=== PATIENT | female | born 2000 | race Hispanic/Latino ===

== ENCOUNTER 2025-02-21 13:16 | Emergency (ER) | payer OTHER, SELFPAY ==
[2025-02-21 13:26] VITALS: BP 112/76; PULSE 90; RESP 20; TEMP 37.1; O2SAT 99
--- NOTE | 2025-02-21 13:28 | ED_ITS ---
HPI - Nausea/Vomiting/Diarrhea General Chief complaint: Nausea/Vomiting/Diarrhea Stated complaint: Vomiting Time Seen by Provider: 02/21/25 13:38 Source: patient and RN notes reviewed Mode of arrival: ambulatory Limitations: no limitations History of Present Illness HPI Narrative: 24 y/o female presented for c/o n/v/d. Onset 2 weeks. Endorses nausea today without vomiting. Last time she ate was last night, then had emesis. Describes the emesis as mostly water, and usually right after eating. Endorses associated epigastric pain. Also has had some loose stools. Denies hematochezia, melena, hematemesis, Denies hematuria, flank pain, constipation, fevers or chills. Took Pepto. Says she was seen in the ER at onset, tested neg for strep, flu and covid. Related Data Allergies Allergy/AdvReac Type Severity Reaction Status Date / Time No Known Allergies Allergy Verified 02/21/25 13:34 Review of Systems Review of Systems: CONSTITUTIONAL: Denies body aches, fever, chills ENT: Denies rhinorrhea, congestion CARDIOVASCULAR: Denies chest pain, palpitations, or edema. RESPIRATORY: Denies cough or dyspnea. GASTROINTESTINAL: Endorses epigastric abdominal pain, nausea, vomiting, diarrhea. Denies hematochezia, melena, hematemesis GENITOURINARY: Denies dysuria, hematuria, or CVA tenderness. SKIN: Denies rash MUSCULOSKELETAL: Denies back pain, joint pain, or myalgia. NEUROLOGIC: Denies headache, numbness, tingling, or weakness. All systems reviewed & are unremarkable except as noted in HPI and below [facility] Surgical History Surgical History (Updated 02/21/25 @ 13:44 by Phylicia Brown, NELLY) History of appendectomy Comments At time of signature, I have reviewed and agree with nursing past medical, fernandes rgical, social and family history unless otherwise noted. Please see nursing chart for further information. There is no relevant family history pertinent to the presenting complaint Exam Narrative: GENERAL: Well-appearing, and in no acute distress. EYES: EOMI. Conjunctivae normal. ENT: Mucous membranes pink and moist. CHEST: No respiratory distress. Clear to auscultation. HEART: Regular rate and rhythm. No murmur appreciated. Normal peripheral pulses. ABDOMEN: abd soft, nondistended, normal active bowel sounds. Tender abdomen to epigsatric; No guarding, rebound tenderness, asymmetry EXTREMITIES: Normal range of motion. No edema. SKIN: Warm, dry, no rash. Capillary refill normal. Normal skin turgor. NEURO: No focal deficits. Alert and oriented x3. PSYCH: Normal affect. Course Course Emergency Course: Patient is aware of diagnosis, understands and agrees to treatment plan. Anticipatory guidance given. Patient agrees to follow-up as directed and is aware of reasons to seek care at the emergency department. Portions of this record may have been created with voice recognition software Level of Care: Express Care Visit Vital Signs Vital signs: Vital Signs Temperature 98.8 F 02/21/25 13:26 Pulse Rate 90 02/21/25 13:26 Respiratory Rate 20 02/21/25 13:26 Blood Pressure 112/76 02/21/25 13:26 Pulse Oximetry 99 02/21/25 13:26 Oxygen Delivery Room Air 02/21/25 13:26 Temperature 98.8 F 02/21/25 13:26 Pulse Rate 90 02/21/25 13:26 Respiratory Rate 20 02/21/25 13:26 Blood Pressure 112/76 02/21/25 13:26 Pulse Oximetry 99 02/21/25 13:26 Oxygen Delivery Room Air 02/21/25 13:26 MDM - Nausea/Vomiting/Diarrhea MDM Narrative Medical decision making narrative: Discussed physical exam findings, neg urine preg. Will culture urine. Advised supportive measures, RX ppi, and signs/symptoms to go to the ER. Pt is appropriate for outpt treatment and f/u. Differential Diagnosis Differential diagnosis: Likely traveler's diarrhea, food poisoning, gastroenteritis, drug-induced nausea and vomiting, dehydration and other Lab Data Labs: Lab Results 02/21/25 Range/Units 13:43 POC Urine Color Yellow POC Urine Clarity Clear POC Urine pH 7.5 POC Ur Specif [place] 1.015 POC Urine Protein Negative (Negative) POC Ur Glucose (UA) Negative (Negative) POC Urine Ketones Negative (Negative) POC Urine Blood Trace (Negative) POC Urine Nitrite Negative (Negative) POC Urine Bilirubin Negative (Negative) POC Urine Urobilinogen 0.2 POC U Leukocyte Esteras 1+ (Negative) POC Urine HCG, Qual Negative (Negative) Discharge Plan Discharge Clinical Impression: Nausea vomiting and diarrhea Patient Disposition: Home Condition: Stable Instructions: Antibiotic Form, GERD (Gastroesophageal Reflux Disease) (ED) Additional Instructions: Stay hydrated. Take small sips of fluid containing electrolytes frequently. Clear liquids (broth, jello, tea, sprite, pedialyte) and Maurice foods (bananas, rice, applesauce, toast, crackers) Avoid fatty, greasy, fried or spicy foods. Limit dairy until symptoms are improved. Recommend probiotic such as align or lactobacillus to help with symptoms. You should go to the hospital if you experience persistent nausea and vomiting that does not resolve and does not allow you to tolerate any food or fluids, fevers, increasing abdominal pain, persistent diarrhea, dizziness, fainting, or for any other concerns. Follow up with primary care provider in 3 days. Patient Language: Telugu Prescriptions: New pantoprazole [Protonix] 40 mg tablet,delayed release (DR/EC) 40 mg PO QAM 28 Days Qty: 28 0RF ondansetron 4 mg tablet,disintegrating 4 mg PO Q8H PRN (Reason: nausea and vomiting) Qty: 6 0RF Follow-up/Referrals: PHYSICIAN,BAND HEAD SAW OPERATOR [Primary Care Provider, Internal Medicine] Haris Andrews MD [Physician, Gastroenterology] Time of Disposition: 14:06
[2025-02-21 13:55] LABS: BEDSIDEPREGUCG Negative (Negative)
[2025-02-21 14:24] LABS: EDUAAPPEAR Clear; EDUABILI Negative (Negative); EDUABLOOD Trace (Negative); EDUACOLOR1 Yellow; EDUAGLUCOSE Negative (Negative); EDUAKETONE Negative (Negative); EDUALEUKO 1+ (Negative); EDUANITRATE Negative (Negative); EDUAPH 7.5; EDUAPROTEIN Negative (Negative); EDUASPGRAVITY 1.015; EDUAUROBILI 0.2
== END 2025-02-21 14:10 | disposition home or self-care (01) ==
PROVIDERS: Emergency Provider Nurse Practitioner Family
DX: R11.2 Nausea with vomiting, unspecified (principal); R19.7 Diarrhea, unspecified
CPT/HCPCS: 81003; 81025; 87086; 99203; G0463

== ENCOUNTER 2025-05-10 15:13 | Outpatient (CLI) | payer OTHER, SELFPAY ==
--- OUTSIDE RECORDS SUMMARY | 2025-05-10 15:18 | XMS_ITS | Clinical Summary ---
Author Organization [facility] Address [address] [place] [address] Care Team Providers Care Beaming Inspector Name Role Phone None, Provider Primary Care Provider Unavaila ble Allergies No known active allergies Medications chanda orellana (CARLOSCKS) 50 % pads Apply topically as needed for Irritation or Itching. 48 each Active Encounters Date Type Department Care Team Description 02/08/2025 6:54 PM CDT - 02/08/2025 8:09 PM CDT Emergency [facility] [place] [address] Cleveland Vuong, ANGELICA Sore Throat Discharge Disposition: Home or Self Care (Routine Discharge) 02/08/2025 Travel from Last 3 Months Social History Tobacco Use Types Packs/Day Years Used Date Smoking Tobacco: Never Smokeless Tobacco: Never Alcohol Use Standard Drinks/Week Comments Not Currently 0 (1 standard drink = 0.6 oz pur e alcohol) Comments Unknown Sex and Gender Information Value Date Recorded Sex Assigned at Female 02/08/2025 7:45 PM CDT Legal Sex Female 7:53 PM CDT Gender Identity Not on file Sexual Orientation Not on file Last Filed Vital Signs Vital Sign Reading Time Taken Comments Blood Pressure 126/86 02/08/2025 6:28 PM CDT Pulse 109 02/08/2025 6:28 PM CDT Temperature 37.2 C (99 F) 02/08/2025 6:28 PM CDT Respiratory Rate 16 02/08/2025 6:28 PM CDT Oxygen Saturation 96% 02/08/2025 6:28 PM CDT Inhaled Oxygen Concentration - - Weight 79.3 kg (174 lb 13.2 oz) 02/08/2025 6:28 PM CDT Height 149.9 cm (4' 11) 02/08/2025 6:28 PM CDT Body Mass Index 35.31 02/08/2025 6:28 PM CDT Plan of Treatment Health Maintenance Due Date Last Done Comments Cervical Cancer Screening Pa p Smear (Age 21 to 29) Every 3 Years 1998 Cervical Cancer Screening 1998 Annual Physical 2001 HPV Vaccines (1 - 3-dose series) 2013 Hepatitis C 2016 DTaP, Tdap and Td Vaccines ( 1 - Tdap) 2017 Hepatitis B Vaccines (1 of 3 - 19+ 3-dose series) 2017 PHQ-2 (Physician Sanborn) 06/20/2024 COVID-19 Vaccine (1 - 2024-2 6 season) 2025 Influenza Adult (#1) 2025 Hepatitis A Vaccines Aged Out No long er eligible based on patient's age to complete this topic Meningococcal B Vaccine Aged Out No l onger eligible based on patient's age to complete this topic Meningococcal Vaccine Aged Out No arthur satish eligible based on patient's age to complete this topic Pneumococcal Vaccine: Pediat rics (0 to 5 Years) and At-Risk Patients (6 to 49 Years) Aged Out No longer eligible b ased on patient's age to complete this topic RSV Immunizations Under 20 Months Aged Out No longer eligible based on patient's age to complete this topic Procedures Procedure Name Priority Date/Time Associated Diagnosis Comments HC OPTICAL STREP STAT 02/08/2025 6:58 PM CDT CORONAVIRUS (COVID 19) STAT 02/08/2025 6:58 PM CDT from Last 3 Months Results * CORONAVIRUS (COVID 19) (02/08/2025 6:58 PM CDT) CORONAVIRUS SARS COV 2 RNA NEGATIVE NEGATIVE 02/08/2025 7:46 PM CDT [facility] Comment: NEGATIVE RESULTS DO NOT RULE OUT COVID 19 AND SHOULD NOT BE USED THE SOLE BASIS FOR TREATMENT OR PATIENT MANAGEMENT DECISIONS, INCLUDING INFECTION CONTROL DECISIONS. NEGATIVE RESULTS SHOULD BE CONSIDERED IN THE CONTEXT OF A PATIENT'S RECENT EXPOSURES, HISTORY AND THE PRESENCE OF CLINICAL SIGNS AND SYMPTOMS CONSISTENT WITH COVID 19. THE ID NOW COVID-19 2.0 TEST HAS BEEN AUTHORIZED BY THE FDA UNDER EAU FOR USE BY AUTHORIZED LABORATORIES. PERFORMED BY NUCLEIC ACID AMPLIFICATION FOR MOLECULAR QUALITATIVE DETECTION OF SARS-COV-2. SPECIMEN TYPE NASAL 02/08/2025 6:57 PM CDT [facility] NASAL STRUCTURE / Unknown 02/08/2025 6:58 PM CDT Cleveland Vuong NP MICROBIOLOGY - GENERAL ORDERAB LES Final Result [facility] [address] [place] [address], [place] [phone] * STREP A RAPID (02/08/2025 6:58 PM CDT) SPECIMEN TYPE THROAT 02/08/2025 6:57 PM CDT [facility] RAPID STREP TEST NEGATIVE NEGATIVE 02/08/2025 7:59 PM CDT [facility] STRUCTURE OF ANTERIOR REGION OF NECK / Unknown 02/08/2025 6:58 PM CDT Cleveland Vuong PICKER MACHINE OPERATOR MICROBIOLOGY - GENERAL ORDERAB LES Final Result [facility] [address] [place] [address], [place] [phone] from Last 3 Months Care Teams Beaming Inspector Relationship Specialty Start Date End Date None, Provider, PCP - General UNKNOWN PHYSICIAN SPECIALTY 04/08/22
--- OUTSIDE RECORDS SUMMARY | 2025-05-10 15:18 | XMS_ITS | Data Portability ---
Author Organization [place] [facility] , [facility] Address [address] [place] [address] Assessment Encounter Date Assessment Date Assessment LastModified by Organization Details LastModified Time 02/25/2025 02/25/2025 24-year-old female presenting with vaginal discharge. A swab was taken to determine the cause of the discharge, with results pending to guide further treatment. [email or web address] Not available 02/25/2025 11:13:41 Plan of Treatment Reminders Order Date Submit Date Provider Last Modified By Organization Details Last Modified Time Details Appointments None recorded. Lab bacterial vaginosis + vaginitis panel, vaginal 2024 025 [address] [email or web address], [address] [place], [address], 09:23:03 Referral None recorded. Procedures None recorded. Surgeries None recorded. Imaging None recorded. Medication Orders None recorded. Patient TargetsNo targets recorded. Patient Instructions Encounter Date Encounter Id Patient Instructions Last Modified By Organization Details Last Modified Time 02/25/2025 [id number] vaginitis: care instructions [email or web address] Not available 02/25/2025 12:08:10 - Await swab results for further instructions - Follow up as needed based on results [email or web address] Not available 02/25/2025 11:13:43 Reason for Referral None Reported. Results Created Date Observation Date Name Description Value Unit Range Abnormal Flag Note LastModifiedBy Organization Detail LastModifiedTime 02/26/20 25 02/26/2025 VAGIN ITIS PLUS STD PANEL bacterial vaginosis BV POS negati ve abnormal Not Available [email or web address] [address] [place], [address], 02/27/2025 09:23:03 02/26/20 25 02/26/2025 VAGIN ITIS PLUS STD PANEL magda species C. spp POS negati ve abnormal Not Available [address], [address], 02/27/2025 09:23:03 02/26/20 25 02/26/2025 VAGIN ITIS PLUS STD PANEL magda glabrata C. gla neg negati ve normal Not Available [address], [address], 02/27/2025 09:23:03 02/26/20 25 02/26/2025 VAGIN ITIS PLUS STD PANEL trichomonas vaginalis CV/TV TRICH neg negati ve normal Not Available [address], [address], 02/27/2025 09:23:03 02/26/20 25 02/26/2025 VAGIN ITIS PLUS STD PANEL chlamydia trachomatis CT neg negati ve normal This repor t is inten ded for us in clini sincere monit oring and manag ement of patie nts. It is not inten ded for use in medic al-le gal appli catio n. Not Available [address], [address], 02/27/2025 09:23:03 02/26/20 25 02/26/2025 VAGIN ITIS PLUS STD PANEL neisseria gonorrhoeae GC neg negati ve normal This repor t is inten ded for us in clini sincere monit oring and manag ement of patie nts. It is not inten ded for use in medic al-le gal appli catio n. Not Available [address], [address], 02/27/2025 09:23:03 Result Notes None recorded. Procedures Surgical History Date Name Laterality Status Provider Name and Address Organization Details Recorded Time Appendectomy completed [facility] 02/25/2025 10:56:04 Imaging Results None recorded. Procedure Notes None recorded. Medical Equipment None Reported. Allergies No known drug allergies Medications Name Sig Start Date Stop Date Status Note LastModified by Organization Details LastModified Time terconazole 0.4 % vaginal cream Insert 1 applicato rful every day by vaginal route for 7 days. 03/13 completed Not Available Not Available Not Available fluconazole 150 mg tablet Take 1 tablet by oral route. active Not Available Not Available No t Available metronidazo le 500 mg tablet TAKE 1 TABLET BY MOUTH TWICE DAILY active Not Available Not Available No t Available pantoprazol e 40 mg tablet,obdulio yed release TAKE 1 TABLET BY MOUTH EVERY MORNING FOR 4 WEEKS active Not Available Not Available No t Available ondansetron 4 mg disintegrat ing tablet DISSOLVE 1 TABLET ON THE TONGUE EVERY 8 HOURS NEEDED FOR NAUSEA OR VOMITING active Not Available Not Available No t Available Vitals Date Recorded Body height Body mass index (BMI) Body weight Systolic And Diastolic Provider Name and Address Organization Details Last Updated DateTime 02/25/2025 149.86 cm 34.3 kg/m2 47319.7 g 102/62 mm[Hg] Batsheva Love [facility] 02/25/2025 10:55:53 Social History Question Answer Notes LastModified by Organizat ion Details LastModified Time Tobacco Smoking Status Never Smoker Batsheva Love [facility] [place] [facility] 02/25/2025 10:58:10 Are You Blind Or Do You Have Difficulty Seeing? No Information not available 02/25/2025 Are You Deaf Or Do You Have Serious Difficulty Hearing? No [email or web address] Information not available 02/25/2025 What Type Of Diet Are You Following? REGULAR [email or web address] Information not available 02/25/2025 How Many Children Do You Have? 0 [email or web address] Information not available 02/25/2025 What Is Your Relationship Status? Single [email or web address] Information not available 02/25/2025 Are You Sexually Active? No Information not available 02/25/2025 Sex: Unknown Functional Status Question Answer Note LastModified by Organizat ion Details LastModified Time Do you use any illicit or recreational drugs? No [email or web address] Information not available 02/25/2025 Do you or have you ever used any other forms of tobacco or nicotine? No [email or web address] Information not available 02/25/2025 What is your level of alcohol consumption? None [email or web address] Information not available 02/25/2025 Mental Status None recorded. Family History Relationship Description Onset Age of this Age Resolved Age Notes LastModified by Organization Details LastModified Time Mother Diabetes mellitus [email or web address] Not available 2024 10:57:28 Notes:cancer runs in family Medical History Condition Response Other Cancer N High Blood Pressure N Colon Cancer N Cytomegalovirus N Hyperthyroidism N MRSA N Blood Transfusion N Herpes (HSV) N Breast Cancer N Lung Cancer N Hypothyroidism N Depression N Incontinence N Panic Attacks N Neurological Disorder N Deep Vein Thrombosis N Anxiety Disorder N Autoimmune disease N Arthritis N Shingles N Tuberculosis/Positive PPD N Infertility N Polycystic Ovarian Syndrome N Cervical Cancer N Chlamydia N Hematuria N Stroke N Varicosities N Seasonal allergies N Crohn's Disease N Alzheimer's/Dementia N COPD/Emphysema N Endometriosis N HPV/Genital Warts N IBS (Irritable Bowel Syndrome) N History of Abnormal Pap N High Cholesterol N Liver Disease N Kidney Infection N Fibromyalgia N Ulcer N Kidney Disease N HIV N Gallbladder disease N Von Willebrand disease N Sickle Cell Disease/Trait N ADD/ADHD N Eating Disorder N Diabetes Mellitus (non-insulin dependent ) N Anemia N Ovarian Problems N Multiple Sclerosis N Gonorrhea N Frequent Urinary Tract infections N Osteopenia N Headaches/migraines N GERD (reflux) N Ovarian Cancer N Diabetes (insulin dependent) N Seizures/Epilepsy N Breast Problems N Fibroids N Asthma N Heart Attack N Endometrial Cancer N Lupus N Rubella N Blood Clotting Disorder N Bipolar Disorder N Diabetes Mellitus (during ) N Ulcerative Colitis N Hepatitis N Heart Disease N Pulmonary Embolism N RPR N Chicken Pox N Osteoporosis N Gynecological History Statement/Question Response Date of Last Colonoscopy Flow Heavy Frequency of Cycle (Q days) 182 Date of LMP 05/27/2024 Most Recent Bone Density Date of Last Pap Smear Duration of Flow (days) 3 Most Recent Mammogram Current Control Method None Age at Menarche 9 Obstetrics History GPAL:G 0 P 0 0 0 0 Type Value Living 0 Total 0 Past Encounters Encounter ID Performer Location Encounter Start Date Encounter Closed Date Diagnosis/Indication Diagnosis SNOMED-CT Code Diagnosis ICD10 Code Diagnosis IMO Codes Diagnosis Note [id number] Carl Jimenez DO [facility] [address] [facility] [phone] 02/25/2025 10:50:02 02/25/2025 16:38:16 Vaginal discharge 853785575 N76.0 N89.8 - Swab taken for diagnostic evaluation , results pending - Await swab results to determine appropriat e treatment Health Concerns Section Related Observation LastModified by Organization Detai ls LastModified Time None Recorded Concern Status LastModified by Organization Details LastModified Time None Recorded Advance Directives Directive None Recorded Payers Insurance Date Sequence Insurance Name Policy Number Policy Watson Covered Member ID Watson Member ID Guarantor Name 02/25/2025 1 KeyOwnerBANNER E [employer]UDENTR[employer] ([facility]) [id number] Asiya Lantigua [id number] Asiya Lantigua Notes Date Note Type Note Provider Name and Address Organization Details Recorded Time 02/25/2025 text/html Vaginal/Vulvar ProblemReported by Patient Slivia is present for vaginal discharge. Pt. states that she has light green discharge that comes and go. Pt. states that this has been going on for the past year. Pt. denies any vaginal itching, odor or pain. Pt. states that she has irregular bleeding.The patient is a 24-year-old female presenting with vaginal discharge. A swab was taken during the pelvic examination to aid in diagnosis. - Swab results pending for diagnostic evaluation Carl Jimenez, DO [address] [facility], [place], [address], [facility] 02/25/2025 13:39:58 OBGyn Episode No OBEpisode recorded.
== END 2025-05-10 15:14 | disposition home or self-care (01) ==
LOC: ANHLAB 15:15
PROVIDERS: Visit Provider Nurse Practitioner Family
DX: R11.2 Nausea with vomiting, unspecified (principal)
CPT/HCPCS: 83013

== ENCOUNTER 2025-05-18 05:41 | Emergency (ER) | payer OTHER, SELFPAY ==
[2025-05-18] VITALS (13 sets, daily range): BP systolic 98–112; BP diastolic 58–71; PULSE 72–96; RESP 14–20; TEMP 36.9; O2SAT 97–100
--- NOTE | ~2025-05-18 | US_ITS ---
ULTRASOUND ABDOMEN LIMITED (RIGHT UPPER QUADRANT) Clinical History: postprandial vomiting, elevated LFTS Comparison: None Technique: Right upper quadrant sonography Findings: Liver: Normal size. Echogenic. No intrahepatic biliary ductal dilatation. Normal hepatopedal flow main portal vein. Common Duct: Normal caliber. 4 mm. Gallbladder: Stones. No wall thickening. No pericholecystic fluid. Negative sonographic Marshall's sign per technologist report. Pancreas: Unremarkable. Right kidney: Unremarkable. Retrohepatic IVC: Unremarkable. IMPRESSION: 1. No acute findings. 2. Gallstones. No evidence of cholecystitis. 3. Hepatic steatosis and/or hepatocellular disease. Reviewed, dictated and finalized at location [facility]
--- NOTE | 2025-05-18 05:54 | ED.ABDPAIN ---
HPI - Abdominal Pain General Chief Complaint: Abdominal Pain <Ranjan Guardado MD - Last Filed: 05/18/25 06:58> Stated Complaint: abd pain <Ranjan Guardado MD - Last Filed: 05/18/25 06:58> Time Seen by Provider: 05/18/25 05:46 <Ranjan Guardado MD - Last Filed: 05/18/25 06:58> History of Present Illness HPI narrative: 24-year-old female with history of GERD, reflux presenting to the emergency department today with epigastric pain that she describes as a burning sensation in her epigastrium sometimes going into her esophagus behind the sternum. She vomited several times today. No abdominal discomfort in the lower quadrants, has a history of appendectomy. Is currently being evaluated by her GI doctor for these symptoms. She tested negative for H pylori recently and is scheduled for an upper endoscopy in June to further evaluate her symptoms. She has been intermittently taking her medications most recently took a Protonix yesterday for the symptoms that started around midnight. Denies any fever, chills, chest pain, shortness a breath, traumatic injuries. Was otherwise in her normal state of health. <Ranjan Guardado MD - Last Filed: 05/18/25 06:58> Related Data Home Medications: Home Medications ?Medication ?Instructions ?Recorded ?Confirmed ?Last Taken ?Type famotidine 40 mg tablet 40 mg PO DAILY 03/25/25 03/25/25 Unknown History <Ranjan Guardado MD - Last Filed: 05/18/25 06:58> Allergies/Adverse Reactions: Allergies Allergy/AdvReac Type Severity Reaction Status Date / Time No Known Allergies Allergy Verified 05/18/25 05:41 <Ranjan Guardado MD - Last Filed: 05/18/25 06:58> Review of Systems Review of Systems: As reviewed above in HPI <Ranjan Guardado MD - Last Filed: 05/18/25 06:58> All systems reviewed & are unremarkable except as noted in HPI and below <Ranjan Guardado MD - Last Filed: 05/18/25 06:58> [facility] Past Medical History Medical History: Medical History Diarrhea GERD (gastroesophageal reflux disease) Epigastric pain Nausea and vomiting <Ranjan Guardado MD - Last Filed: 05/18/25 06:58> Surgical History Surgical History: Surgical History History of appendectomy <Ranjan Guardado MD - Last Filed: 05/18/25 06:58> Social History Social History: Social History Smoking status: Never smoker <Ranjan Guardado MD - Last Filed: 05/18/25 06:58> Exam Narrative: GENERAL: [Well-appearing, well-nourished, and in no acute distress.] HEAD: [Normocephalic, atraumatic.] EYES: [PERRLA and EOMI.] ENT: Nares clear, no rhinorrhea or epistaxis. Mucous membranes moist. NECK: Supple. CHEST: [Clear to auscultation. No respiratory distress.] HEART: [Regular rate and rhythm]. No murmur heard. [Normal peripheral pulses.] ABDOMEN: [Soft, nondistended], [nontender], [No rigidity or guarding] EXTREMITIES: Normal range of motion. [No edema.] SKIN: Warm, dry, no rash. NEURO: [No focal deficits]. Alert and oriented [x3.] PSYCH: [Normal mood and affect.] <Ranjan Guardado MD - Last Filed: 05/18/25 06:58> Course Course Emergency Course: Patient resting comfortably. Informed of results. She does have gallstones. Discussed with general surgery who would like to see the patient this week. Will provide pain and nausea control for home. Pain free at this time with a benign exam. <Lamont Dia MD - Last Filed: 05/18/25 09:30> Vital Signs Vital signs: Vital Signs Temperature 98.5 F 05/18/25 05:47 Pulse Rate 96 05/18/25 05:47 Respiratory Rate 20 05/18/25 05:47 Blood Pressure 112/67 05/18/25 05:47 Pulse Oximetry 98 05/18/25 05:47 Temperature 98.5 F 05/18/25 05:47 Pulse Rate 74 05/18/25 09:00 Respiratory Rate 16 05/18/25 09:00 Blood Pressure 104/69 05/18/25 09:00 Pulse Oximetry 99 05/18/25 09:00 <Ranjan Guardado MD - Last Filed: 05/18/25 06:58> Vital Signs Temperature 98.5 F 05/18/25 05:47 Pulse Rate 96 05/18/25 05:47 Respiratory Rate 20 05/18/25 05:47 Blood Pressure 112/67 05/18/25 05:47 Pulse Oximetry 98 05/18/25 05:47 Temperature 98.5 F 05/18/25 05:47 Pulse Rate 74 05/18/25 09:00 Respiratory Rate 16 05/18/25 09:00 Blood Pressure 104/69 05/18/25 09:00 Pulse Oximetry 99 05/18/25 09:00 <Lamont Dia MD - Last Filed: 05/18/25 09:30> MDM - Abdominal Pain MDM Narrative Medical decision making narrative: 24-year-old female with history of GERD, reflux presenting to the emergency department today with epigastric pain that she describes as a burning sensation in her epigastrium sometimes going into her esophagus behind the sternum. She vomited several times today. No abdominal discomfort in the lower quadrants, has a history of appendectomy. Is currently being evaluated by her GI doctor for these symptoms. She tested negative for H pylori recently and is scheduled for an upper endoscopy in June to further evaluate her symptoms. She has been intermittently taking her medications most recently took a Protonix yesterday for the symptoms that started around midnight. Denies any fever, chills, chest pain, shortness a breath, traumatic injuries. Was otherwise in her normal state of health. Patient has normal vital signs. No tachycardia, fever, hypoxemia. Normal blood pressure. Soft nontender nondistended abdomen. She describes her pain as burning epigastric pain sometimes going into her esophagus and she has vomited. Symptoms consistent with gastritis, gastroenteritis, peptic ulcer disease. Patient is already getting proper care for this and has an endoscopy upcoming for these symptoms but states that the pain worsened today. She otherwise is low risk and does not smoke or drink. No family history of any malignancies and I did review patient's GI note with previous changes to her medication regimen from histamine blockers to PPIs. Will treat her symptomatically with a GI cocktail and IV Pepcid. Given Zofran and laboratory studies were obtained. Patient felt significantly better after treatment regimen with Pepcid and GI cocktail. Her laboratory studies show elevations in her LFTs however. Her T bili is normal, glucose is normal. Lipase and test are negative. Normal electrolytes. No significant leukocytosis. I went and re-evaluated the patient at this time and she did not have any pain in her right upper quadrant and was not febrile or tachycardic. I did discuss her LFT elevations and given her symptom improvement offered her treatment plan with Pepcid Maalox and GI follow-up for this but she was hesitant and requested further evaluation about her LFTs as she is worried about postprandial vomiting that she has been dealing with for few days being potentially related to gallbladder pathology. Ordered right upper quadrant ultrasound at this time and patient care signed over to morning physician pending results and discharge home likely afterwards with GI follow-up. Prescription medications sent. <Ranjan Guardado MD - Last Filed: 05/18/25 06:58> Medical Records Attestation: I reviewed the patient's medical records. <Ranjan Guardado MD - Last Filed: 05/18/25 06:58> Lab Data Attestation: I reviewed the patient's lab results. <Ranjan Guardado MD - Last Filed: 05/18/25 06:58> Result diagrams: 05/18/25 05:55 05/18/25 05:55 <Ranjan Guardado MD - Last Filed: 05/18/25 06:58> Labs: Lab Results 05/18/25 Range/Units 05:55 WBC 10.6 H (4.5-10.0) K/mm3 RBC 4.87 (4.2-5.4) M/mm3 Hgb 13.7 (12.0-15.0) g/dL Hct 41.2 (37.0-47.0) % MCV 84.6 (80-100) fl MCH 28.1 (26-34) pg MCHC 33.3 (32-36) g/dl RDW 13.1 (11.5-14.5) % Plt Count 333 (150-375) k/mm3 MPV 9.9 (7.4-10.4) fl Immature Gran % (Auto) 0.5 (0-0.5) % Neut % (Auto) 82.0 H (45.5-73.1) % Lymph % (Auto) 12.3 L (18.3-44.2) % [place] % (Auto) 4.4 (2.6-8.5) % Eos % (Auto) 0.2 (0-4.4) % Baso % (Auto) 0.6 (0.2-1.2) % Lymph # (Auto) 1.31 (0.9-3.2) K/mm3 [place] # (Auto) 0.5 (0.1-0.6) K/mm3 Eos # (Auto) 0.0 (0-0.3) K/mm3 Baso # (Auto) 0.1 (0.0-0.1) K/mm3 Abs Immat Gran (auto) 0.05 H (0.00-0.031) K/mm3 Absolute Neuts (auto) 8.7 H (1.3-6.7) K/mm3 Absolute Nucleated RBC 0.000 (0.0-0.012) K/mm3 Nucleated RBC % 0.0 (0.0-0.2) % Sodium 137 (137-145) mmol/L Potassium 3.6 (3.4-5.0) mmol/L Chloride 104 (98-107) mmol/L Carbon Dioxide 25 (22-30) mmol/L Anion Gap 8 (4-12) mmol/L BUN 10 (7-17) mg/dL Creatinine 0.66 L (0.7-1.0) mg/dL Estim Creat Clear Calc Not Reportable Estimated GFR > 60 (59 - ) Glucose 125 H (65-110) mg/dL Calcium 9.1 (8.4-10.2) mg/dL Magnesium 1.9 (1.6-2.3) mg/dL Total Bilirubin 0.9 (0.2-1.3) mg/dL AST 401 H (14-36) U/L ALT 259 H (6-35) U/L Alkaline Phosphatase 116 (38-126) U/L Total Protein 8.5 H (6.3-8.2) g/dL Albumin 4.8 (3.5-5.1) g/dL Lipase 124 (23-300) U/L Beta HCG, Quant < 2.39 mIU/ML <Ranjan Guardado MD - Last Filed: 05/18/25 06:58> Lab Results 05/18/25 Range/Units 05:55 WBC 10.6 H (4.5-10.0) K/mm3 RBC 4.87 (4.2-5.4) M/mm3 Hgb 13.7 (12.0-15.0) g/dL Hct 41.2 (37.0-47.0) % MCV 84.6 (80-100) fl MCH 28.1 (26-34) pg MCHC 33.3 (32-36) g/dl RDW 13.1 (11.5-14.5) % Plt Count 333 (150-375) k/mm3 MPV 9.9 (7.4-10.4) fl Immature Gran % (Auto) 0.5 (0-0.5) % Neut % (Auto) 82.0 H (45.5-73.1) % Lymph % (Auto) 12.3 L (18.3-44.2) % [place] % (Auto) 4.4 (2.6-8.5) % Eos % (Auto) 0.2 (0-4.4) % Baso % (Auto) 0.6 (0.2-1.2) % Lymph # (Auto) 1.31 (0.9-3.2) K/mm3 [place] # (Auto) 0.5 (0.1-0.6) K/mm3 Eos # (Auto) 0.0 (0-0.3) K/mm3 Baso # (Auto) 0.1 (0.0-0.1) K/mm3 Abs Immat Gran (auto) 0.05 H (0.00-0.031) K/mm3 Absolute Neuts (auto) 8.7 H (1.3-6.7) K/mm3 Absolute Nucleated RBC 0.000 (0.0-0.012) K/mm3 Nucleated RBC % 0.0 (0.0-0.2) % Sodium 137 (137-145) mmol/L Potassium 3.6 (3.4-5.0) mmol/L Chloride 104 (98-107) mmol/L Carbon Dioxide 25 (22-30) mmol/L Anion Gap 8 (4-12) mmol/L BUN 10 (7-17) mg/dL Creatinine 0.66 L (0.7-1.0) mg/dL Estim Creat Clear Calc Not Reportable Estimated GFR > 60 (59 - ) Glucose 125 H (65-110) mg/dL Calcium 9.1 (8.4-10.2) mg/dL Magnesium 1.9 (1.6-2.3) mg/dL Total Bilirubin 0.9 (0.2-1.3) mg/dL AST 401 H (14-36) U/L ALT 259 H (6-35) U/L Alkaline Phosphatase 116 (38-126) U/L Total Protein 8.5 H (6.3-8.2) g/dL Albumin 4.8 (3.5-5.1) g/dL Lipase 124 (23-300) U/L Beta HCG, Quant < 2.39 mIU/ML <Lamont Dia MD - Last Filed: 05/18/25 09:30> Imaging Data Radiologist's impression: ITS Impressions Abdomen Ultrasound 05/18/25 08:20 IMPRESSION: 1. No acute findings. 2. Gallstones. No evidence of cholecystitis. 3. Hepatic steatosis and/or hepatocellular disease. <Ranjan Guardado MD - Last Filed: 05/18/25 06:58> ITS Impressions Abdomen Ultrasound 05/18/25 08:20 IMPRESSION: 1. No acute findings. 2. Gallstones. No evidence of cholecystitis. 3. Hepatic steatosis and/or hepatocellular disease. <Lamont Dia MD - Last Filed: 05/18/25 09:30> Discharge Plan Discharge Clinical Impression: Epigastric burning sensation, Biliary colic <Ranjan Guardado MD - Last Filed: 05/18/25 06:58> Patient Disposition: Home <Ranjan Guarddao MD - Last Filed: 05/18/25 06:58> Condition: Stable <Ranjan Guardado MD - Last Filed: 05/18/25 06:58> Instructions: Antibiotic Form, Gallstones (ED), Low Fat Diet (ED) <Ranjan Guardado MD - Last Filed: 05/18/25 06:58> Additional Instructions: Burning epigastric pain likely secondary to gastritis versus GERD. Possibility of some ulcers. Keep your scheduled GI appointment for endoscopy in June but call them for close follow-up to see if this can be moved up or you can be seen for repeat evaluation in clinic. We will send you home with Maalox and Pepcid which helped her symptoms here today. Return with any emergent concerns or worsening symptoms. <Ranjan Guardado MD - Last Filed: 05/18/25 06:58> Patient Language: Beninese <Ranjan Guardado MD - Last Filed: 05/18/25 06:58> Prescriptions: New alum-mag hydroxide-simeth [Maalox Advanced] 200-200-20 mg/5 mL suspension 15 ml PO QID PRN (Reason: dyspepsia) Qty: 3000 0RF Rx Instructions: administer between meals and at bedtime famotidine [Pepcid] 20 mg tablet 20 mg PO BID Qty: 20 0RF ondansetron 4 mg tablet,disintegrating 4 mg PO Q8H PRN (Reason: nausea and vomiting) Qty: 10 0RF hydrocodone-acetaminophen 5-325 mg tablet 1 tablet PO Q6H PRN (Reason: pain) Qty: 10 0RF No Action famotidine 40 mg tablet 40 mg PO DAILY omeprazole 40 mg capsule,delayed release(DR/EC) 40 mg PO BID 30 Days Qty: 60 1RF <Ranjan Guardado MD - Last Filed: 05/18/25 06:58> Follow-up/Referrals: Sara Cortez MD [Physician, General Surgery] - 1 Week PHYSICIAN,SQL SS[employer] DEVELOPER [Primary Care Provider, Internal Medicine] <Ranjan Guardado MD - Last Filed: 05/18/25 06:58>
[2025-05-18] MEDS: BELLADONNA ALK/PHENOB ELIX 10 ML, MAG HYDROX/ALUMINUM HYD/SIMETH 30 ML, LIDOCAINE 2% VI... PO (05:59)
[2025-05-18] MEDS: FAMOTIDINE 20 MG/2 ML VIAL IV PUSH (06:00)
[2025-05-18 06:01] LABS: Hematocrit 41.2 % (37.0-47.0); Hemoglobin 13.7 g/dL (12.0-15.0); Immature Granulocyte Percent A 0.5 % (0-0.5); Lymphocytes Absolute Auto 1.31 K/mm3 (0.9-3.2); Mean Corpuscular HGB Conc 33.3 g/dl (32-36); Mean Corpuscular Hemoglobin 28.1 pg (26-34); Mean Corpuscular Volume 84.6 fl (80-100); Nucleated Red Blood Cells Absolute Auto 0.000 K/mm3 (0.0-0.012); Nucleated Red Blood Cells Perc 0.0 % (0.0-0.2); Platelet Count Result 333 k/mm3 (150-375); Red Blood Count 4.87 M/mm3 (4.2-5.4); White Blood Count 10.6 K/mm3 (4.5-10.0)
[2025-05-18] MEDS: ONDANSETRON INJ 4 MG/2 ML VIAL IV PUSH (06:01)
[2025-05-18 06:18] LABS: Alanine Aminotransferase 259 U/L (6-35); Albumin Level 4.8 g/dL (3.5-5.1); Alkaline Phosphatase 116 U/L (38-126); Anion Gap 8 mmol/L (4-12); Aspartate Amino Transferase 401 U/L (14-36); Bilirubin,Total 0.9 mg/dL (0.2-1.3); Blood Urea Nitrogen 10 mg/dL (7-17); Calcium 9.1 mg/dL (8.4-10.2); Carbon Dioxide 25 mmol/L (22-30); Chloride 104 mmol/L (98-107); Estimated Glomerular Filt Rate > 60; Glucose 125 mg/dL (65-110); Lipase 124 U/L (23-300); Magnesium 1.9 mg/dL (1.6-2.3); Potassium 3.6 mmol/L (3.4-5.0); Sodium 137 mmol/L (137-145); Total Protein 8.5 g/dL (6.3-8.2)
[2025-05-18 06:32] LABS: Beta HCG Quantitative < 2.39 mIU/ML
[2025-05-18 09:29] LABS: BEDSIDEPREGUCG Negative (Negative)
== END 2025-05-18 09:35 | disposition home or self-care (01) ==
PROVIDERS: Student in an Organized Health Care Education/Training Program; Emergency Provider Emergency Medicine
DX: R10.13 Epigastric pain (principal); K80.20 Calculus of gallbladder without cholecystitis without obstruction; K21.9 Gastro-esophageal reflux disease without esophagitis; R93.2 Abnormal findings on diagnostic imaging of liver and biliary tract
CPT/HCPCS: 36415; 76705; 80053; 81025; 83690; 83735; 84702; 85025; 96374; 96375; 99284; A9270; J2405